=== PATIENT | female | born 1970 | race Caucasian/White ===

== ENCOUNTER 2022-05-19 13:00 | Outpatient (NON) | payer BC, SELFPAY | END 2022-05-19 13:01 | disposition home or self-care (01) | LOC: ANHLAB 05-21 07:33 | PROVIDERS: PCP Internal Medicine; Visit Provider Nurse Practitioner | DX: L98.8 Other specified disorders of the skin and subcutaneous tissue (principal) | CPT/HCPCS: 88305; 88342 ==

== ENCOUNTER 2022-07-27 12:35 | Outpatient (NON) | payer BC, SELFPAY | END 2022-07-27 12:36 | disposition home or self-care (01) | LOC: ANHLAB 12:36 | PROVIDERS: PCP Internal Medicine; Visit Provider Nurse Practitioner | DX: D22.5 Melanocytic nevi of trunk (principal) | CPT/HCPCS: 88305; 88331 ==

== ENCOUNTER 2024-10-30 01:46 | Day surgery (SDC) | payer BC, SELFPAY ==
[2024-07-21 15:36] VITALS: BMI 26.5
[2024-08-24 15:02] VITALS: BMI 26.3
[2024-09-15 13:58] VITALS: BMI 26.3
[2024-10-16 08:29] VITALS: BMI 26.3
--- OUTSIDE RECORDS SUMMARY | 2024-10-30 01:50 | XMS_ITS | Clinical Summary ---
Author Organization [facility] [employer] Address [address] [place] [address] Care Team Providers Care Plate Glass Installer Helper Name Role Phone Sadiq Bustos MD Primary Care Provider [phone] Source Comments [facility],non-owned Affiliates and Associated Physician Practices is amultiple site organization consisting of ambulatory clinics and hospital sitesin [place], [place], [place] and [place]. This disclosure is being madepursuant to the Care Everywhere program and may not contain all information available regarding this patient. Last updated 18.[facility] [employer] Allergies No known active allergies Medications * Be aware that medications may not be up to date on this document. Alwaysverify current medications with the patient. Medication Sig Dispensed Refills Start Date End Date Status oxyCODONE-acetaminophe n (PERCOCET) 5-325 MG tablet Take 1 Tab by mouth every 6 hours as needed for Pain 45 Tab 0 06/17/2016 Active Active Problems Problem Noted Date Diagnosed Date Intramural leiomyoma of uterus Social History Tobacco Use Types Packs/Day Years Used Date Smoking Tobacco: Never Alcohol Use Standard Drinks/Week Comments Yes 0 (1 standard drink = 0.6 oz pur e alcohol) socially Sex and Gender Information Value Date Recorded Sex Assigned at Not on file Gender Identity Not on file Sexual Orientation Not on file Last Filed Vital Signs Vital Sign Reading Time Taken Comments Blood Pressure 118/80 06/29/2016 4:12 PM CDT Pulse 65 06/17/2016 11:55 AM CDT Temperature 37.1 C (98.8 F) 06/17/2016 11:55 AM CDT Respiratory Rate 18 06/17/2016 11:55 AM CDT Oxygen Saturation 100% 06/17/2016 11:55 AM CDT Inhaled Oxygen Concentration - - Weight 59 kg (130 lb) 07/09/2016 4:55 PM CDT Height 160 cm (5' 3 ) 07/09/2016 4:55 PM CDT Body Mass Index 23.03 07/09/2016 4:55 PM CDT Plan of Treatment Health Maintenance Due Date Last Done Comments COLOGUARD (AGES 45-75) - COL ON CA SCREENING 1972 COLON MONITORING 1972 COLONOSCOPY - COLON CA SCREENING 1972 CT COLONOGRAPHY - COLON CA SCREENING 1972 Colorectal Cancer Screening 1972 FIT - COLON CA SCREENING 1972 FLEX SIG - COLON CA SCREENING 1972 LIPID TESTING 1972 MAMMOGRAM 1972 PAP SMEAR 1972 HIV SCREENING 1987 HEPATITIS C SCREENING 10/04/1990 DTAP/TDAP/TD VACCINES (1 - Tdap) 1991 HEPATITIS B VACCINE (1 of 3 - 19+ 3-dose series) 1991 PNEUMOCOCCAL VACCINE 50+ (1 of 1 - PCV) 2022 ZOSTER VACCINE (1 of 2) 2022 COVID-19 VACCINE (1 - 2023-2 5 season) 2024 INFLUENZA VACCINE (#1) 2024 DEPRESSION SCREENING 09/13/2024 HIB VACCINE Aged Out No longer eligi ble based on patient's age to complete this topic HPV VACCINE Aged Out No longer eligi ble based on patient's age to complete this topic MENINGOCOCCAL (Group B) VACCINE Aged Out No longer eligible based on patient's age to complete this topic MENINGOCOCCAL VACCINE Aged Out No hanane pina eligible based on patient's age to complete this topic PNEUMOCOCCAL VACCINE Aged Out No long er eligible based on patient's age to complete this topic Advance Directives * Full Code (Latest Code Status on File) Date Activated Date Inactivated Comments 06/16/2016 12:37 PM 06/17/2016 1:46 PM Care Teams Plate Glass Installer Helper Relationship Specialty Start Date End Date Sadiq Bustos MD [address] [place] [address] [address] [place] [address] PCP - General Internal Medicine 06/09/16
--- OUTSIDE RECORDS SUMMARY | 2024-10-30 01:50 | XMS_ITS | Encounter Summary ---
Author Organization [facility] Address [address] [place] [address] Care Team Providers Care Ferruler Name Role Phone Unavailable Primary Care Provider Unavailabl e Reason for Visit * Diagnostic Imaging (Routine) - Pending Review Specialty Diagnoses / Procedures Referred By Abigail kern Referred To Contact Procedures Breast Imaging Screening Outside Reference Gloria Rivera MD [address] [address] Phone: tel: fax: Referral ID Status Reason Start Date Expiration Date V isits Requested Visits Authorized [id number] Pending Review 04/18/2024 05/18/2025 1 1 Encounter Details Date Type Department Care Team (Late st Contact Info) Description 07/12/2019 Hospital Encounter [facility] [address] [place] [id number] Social History Tobacco Use Types Packs/Day Years Used Date Smoking Tobacco: Never Assessed Personal Safety Answer Date Recorded Getting School Help Needed Not on file 03/23 Comments Unknown Sex and Gender Information Value Date Recorded Sex Assigned at Not on file Legal Sex Female 4:58 PM CDT Gender Identity Not on file Sexual Orientation Not on file documented as of this encounter Plan of Treatment Not on file documented as of this encounter Procedures Procedure Name Priority Date/Time Associated Diagnosis Comments BREAST IMAGING MG SCREENING OUTSIDE REFERENCE Routine 07/12/2019 12:00 AM CDT documented in this encounter Results * Breast Imaging Screening Outside Reference (07/12/2019 12:00 AM CDT) Impressions [facility]_M[facility]MO[facility] - 04/18/2024 3:44 PM CDT These images are for Reference purposes only and have not been reviewed by [facility] Radiology. There will be no report generated by a [facility] Radiologist. Narrative [facility] - 04/18/2024 3:44 PM CDT EXAMINATION: Images For Reference Purposes Only us Gloria Rivera MD IMG MAMMO PROCEDURES Fin al Result [facility] documented in this encounter Visit Diagnoses Not on filedocumented in this encounter
--- OUTSIDE RECORDS SUMMARY | 2024-10-30 01:50 | XMS_ITS | Referral Summary ---
Author Organization [facility] [employer] Address [address] [place] [address] Care Team Providers Care Glove Printer Name Role Phone Sadiq Bustos MD Primary Care Provider [phone] Source Comments [facility],non-owned Affiliates and Associated Physician Practices is amultiple site organization consisting of ambulatory clinics and hospital sitesin [place], [place], [place] and [place]. This disclosure is being madepursuant to the Care Everywhere program and may not contain all information available regarding this patient. Last updated 18.[facility] [employer] Allergies No known active allergies Medications * [...] Mass Index 23.03 07/09/2016 4:55 PM CDT Functional Status Functional Status Response Date of Assess ment Is person deaf or have serious hearing difficult y? No 06/16/2016 Is person blind or have serious difficulty seein g? No 06/16/2016 Does person have serious dif ficulty walking/climbing stairs? Yes 06/16/2016 Does person have difficulty dressing/bathing? No 06/16/2016 Does person have difficulty doing errands alone? No 06/16/2016 Cognitive Status Response Date of Assessm ent Does person have difficulty concentrating/remembering/making decisions? No 06/16/2016 Plan of Treatment Not on file Advance Directives * Full Code (Latest Code Status on File) Date Activated Date Inactivated Comments 06/16/2016 12:37 PM 06/17/2016 1:46 PM Care Teams Glove Printer Relationship Specialty Start Date End Date Sadiq Bustos MD [address] [place] [address] [address] [place] [address] PCP - General Internal Medicine 06/09/16
--- OUTSIDE RECORDS SUMMARY | 2024-10-30 01:50 | XMS_ITS | Clinical Summary ---
Author Organization [facility] Address [address] [place] [address] Care Team Providers Care Carburetor Repairer Name Role Phone Melissa Curtis MD Primary Care Provider Family History Medical History Relation Comments Breast Cancer Maternal Grandmother Breast Cancer Mother Breast Cancer Paternal Grandmother Relation Status Comments Maternal Grandmother Mother Paternal Grandmother Social History Tobacco Use Types Packs/Day Years Used Date Smoking Tobacco: Never Assessed Comments Unknown Sex and Gender Information Value Date Recorded Sex Assigned at Not on file Legal Sex Female 8:35 PM CDT Gender Identity Not on file Sexual Orientation Not on file Plan of Treatment Health Maintenance Due Date Last Done Comments Cervical Cancer Screening Pap Smear (Age 30 to 64) Every 3 Years 1972 Colorectal Cancer Screening Colonoscopy (10 Years) 1972 Annual Physical 1975 Hepatitis C 1990 DTaP, Tdap and Td Vaccines (1 - Tdap) 1991 Hepatitis B Vaccines (1 of 3 - 19+ 3-dose series) 1991 Cervical Cancer Screening Pap with HPV Testing (Age 30 to 64) Every 5 Years 2002 Cervical Cancer Screening with HPV 2002 Zoster Vaccines (1 of 2) 2022 COVID-19 Vaccine ( - season) 2024 01/04/2021, 12/14/2020 Influenza Adult (#1) 2024 Mammogram Screening 03/22/2026 03/22/2024, 02/01/2023, 11/03/2021, Additional history exists Meningococcal B Vaccine Aged Out No l onger eligible based on patient's age to complete this topic Meningococcal Vaccine Aged Out No hanane pina eligible based on patient's age to complete this topic Pneumococcal Vaccine: Pediatrics (0 to 5 Years) and At-Risk Patients (6 to 64 Years) Aged Out No longer eligible based on patient's age to complete this topic RSV Immunizations Under 20 Months Aged Out No longer eligible based on patient's age to complete this topic Procedures Procedure Name Priority Date/Time Associated Diagnosis Comments MG SCREENING W SHAN GIANA DIGI Routine 03/22/2024 12:43 PM CDT Visit for screening mammogram from Last 3 Months or Most Recently Relevant to Health Maintenance Results * MG SCREENING W SHAN GIANA DIGI (03/22/2024 12:43 PM CDT) Anatomical Region Laterality Modality Breast Bilateral Mammography 03/22/2024 6:31 PM CDT Impressions 03/23/2024 11:11 AM CDT ===== IMPRESSION: ===== 1. Additional imaging of the right breast. Assessment: ACR BI-RADS 0 - INCOMPLETE: NEEDS ADDITIONAL IMAGING EVALUATION Recommendation: 1:Additional Imaging Right Comments: Ordered By: MELISSA CURTIS Interpreted By: Chelsea Irizarry, 03/22/2024 6:31 PM Narrative 03/23/2024 11:11 AM CDT EXAMINATION: Digital bilateral screening mammogram with 3-D tomosynthesis EXAM DATE/TIME: 03/22/2024 12:24 PM REASON FOR EXAM: Routine screening Mother with breast carcinoma age 38. Maternal grandmother and paternal grandmother with breast carcinoma COMPARISON: 11/03/2021.. 02/01/2023 Technique: Digital screening mammography of both breasts was performed in addition to 3-D Tomosynthesis technique. This study was read with the assistance of a computer-aided detection system. Tissue density: The breast tissue is heterogeneously dense, which may obscure small masses. Findings: Development of well-defined 1.4 cm nodule within the slightly lateral and inferior right breast. In its posterior aspect.. Follow-up with diagnostic workup. Possible follow-up ultrasound. No malignant microcalcifications. Other stable bilateral benign-appearing nodules. Thickening or nipple retraction. us Melissa Curtis MD MAMMO Final Resul t from Last 3 Months or Most Recently Relevant to Health Maintenance Insurance [facility] Care Teams Carburetor Repairer Relationship Specialty Start Date End Date Melissa Curtis MD PCP - General OBGYN 07/03/19
--- OUTSIDE RECORDS SUMMARY | 2024-10-30 01:50 | XMS_ITS | Patient Health Summary ---
Author Organization [facility] Address [address] [place] [address] Care Team Providers Care Space Controller Name Role Phone Sadiq Bustos MD Primary Care Provider [phone] Note from [facility],non-owned Affiliates and Associated Physician Practices is amultiple site organization consisting of ambulatory clinics and hospital sitesin [place], [place], [place] and [place]. This disclosure is being madepursuant to the Care Everywhere program and may not contain all information available regarding this patient. Last updated 18.[facility] Allergies No known active allergies Medications * Be aware that medications may not be up to date on this document. Alwaysverify current medications with the patient. * oxyCODONE-acetaminophen (PERCOCET) 5-325 MG tablet(Started 06/17/2016) Take 1 Tab by mouth every 6 hours as needed for Pain Active Problems Problem Noted Date Diagnosed Date [...] Mass Index 23.03 07/09/2016 4:55 PM CDT Procedures * CARDIAC RHYTHM STRIP ORDER(Performed 06/19/2016) * APHERESIS/TRANSFUSION ORDER(Performed 06/19/2016) * PATHOLOGY TISSUE EXAM (STL)(Performed 06/16/2016) Performed for Uterine leiomyoma, unspecified location * CYSTOSCOPY WITH HYDRODISTENSION BLADDER(Performed 06/16/2016) Performed for Uterine leiomyoma, unspecified location * HYSTERECTOMY TOTAL LAPAROSCOPIC WITH SALPINGECTOMY AND/OR OOPHORECTOMY (Performed 06/16/2016) Performed for Uterine leiomyoma, unspecified location * HCG URINE QUALITATIVE - POINT OF CARE(Performed 06/16/2016) * PATHOLOGY/GENETICS HISTORICAL-ONBASE(Performed 06/16/2016) * TYPE + SCREEN PANEL(Performed 06/10/2016) Performed for Pre-op testing * CBC W AUTO DIFFERENTIAL(Performed 06/10/2016) Performed for Pre-op testing * BLOOD TYPE VERIFICATION(Performed 06/10/2016) Results * CARDIAC RHYTHM STRIP ORDER (06/19/2016 5:08 AM CDT) Narrative 06/19/2016 5:08 AM CDT Ordered by an unspecified provider. Scanned Document CARDIAC SERVICES ORD ERABLES * APHERESIS/TRANSFUSION ORDER (06/19/2016 5:08 AM CDT) Narrative 06/19/2016 5:08 AM CDT Ordered by an unspecified provider. Scanned Document NURSING - VITAL SIGN S AND ASSESSMENT * GROSS + MICRO EXAM (STL) (06/16/2016 9:46 AM CDT) Case Report Surgical Pathology Report Case: [id number] Authorizing Provider: Iza Chang, Collected: 06/16/2016 09:46 AM Ordering Location: [facility] Received: 06/16/2016 11:10 AM Pathologist: Ana Mcdaniel MD Specimen: Uterus w Cervix, uterus, cervix, bilateral fallopian tubes 06/17/2016 1:43 PM T [facility] Final Diagnosis 1. Uterus with cervix and bilateral fallopian tubes: -- Secretory pattern -- Leiomyomata -- Adenomyosis -- Cervix with no pathologic changes -- Serosa with no pathologic changes -- Bilateral fallopian tubes with no pathologic changes GM/jonathan 06/17/2016 1:43 PM [facility] Gross Description Received in formalin in a container labeled Marco A, Yanna, uterus, cervix, bilateral tubes. The container holds a fragmented uterus with detached cervix measuring 30 x 19 x 7.5 cm in aggregate. The detached cervix measures 8 x 3.5 x 3 cm. The serosa is pink-greene and dull. The ectocervix measures 3.7 cm in diameter and displays a greene unremarkable mucosa. Slit-like os measures 1.5 cm. The endocervical canal measures 4 cm in length and has a greene herringbone mucosa. The endometrial cavity is disrupted. The endometrium is pink-greene. The myometrium contains multiple leiomyomas measuring up to 10.5 cm in greatest dimension. The leiomyomas have a white-greene whirled appearing cut surface with no areas of hemorrhage or necrosis identified. Also received in the container are two unoriented fallopian tube segments. The segments measure 5.5 cm in length and up to 0.7 cm in diameter and 5.8 cm in length x 0.7 cm in diameter. The fallopian tube segments have a fimbriated end. Section shows a patent lumen with no focal lesions. Drilling Rig Operator sections are submitted as follows: A1 - serosa, A2 - anterior cervix, A3 - posterior cervix, A4 through A6 - endomyometrium, A7/A8 - leiomyomas, A9 - sections of shorter fallopian tube segment, A10 sections of longer fallopian tube segment. DYT/ns 06/17/2016 1:43 PM [facility] Microscopic Description Microscopic examination of the cervix shows normal squamous mucosa and the endocervical canal is lined by unremarkable mucinous epithelium. There is no evidence of dysplasia or malignancy. The endometrium shows a secretory pattern and is free of polyp formation or hyperplasia. The myometrium shows evidence of leiomyoma formation with no unusual features. In addition, there is evidence of adenomyosis. The serosa is unremarkable. Both fallopian tubes show no pathologic changes. GM/jonathan 06/17/2016 1:43 PM CDT [facility] Pathology/Cytolo gy SPECIMEN FROM UTERINE CERVIX OBTAINED BY HYSTERECTOMY / Unknown 06/16/2016 9:46 AM CDT 06/16/2016 11:10 AM CDT Iza Cox MD LAB - PATHOL OGY/CYTOLOGY ORDERABLES Performing Organization Address City/[facility]/ZIP Co de Phone Number [facility] [address] [place] [address] * HCG URINE QUALITATIVE - POINT OF CARE (IP) (06/16/2016 7:02 AM CDT) HCG Qual Urine Negative Negative [facility] POCT TEST[facility] QC Verified Yes Yes [facility] POC T TESTING Urine specimen (specimen) URINE / Unknown 06/16/2016 7:02 AM CDT Iza Cox MD LAB - POINT OF CARE ORDERABLES Performing Organization Address [facility] Co de Phone Number [facility] POCT TESTING [address] [place] [address] * PATHOLOGY/GENETICS HISTORICAL-ONBASE (06/16/2016) 06/16/2016 Historical Provider LAB - CHEMISTRY O RDERABLES Performing Organization Address City/[facility]/ZIP Co de Phone Number [address] * TYPE + SCREEN PANEL (06/10/2016 3:19 PM CDT) ABO O 06/10/2016 4:51 PM CDT [facility] Rh Type Negative 06/10/2016 4:51 PM CDT [facility] Comment:History check perfor med. Retype required. Antibody Screen Negative 06/10/2016 4:51 PM CDT [facility] Miscellaneous samples (specimen) BLOOD SPECIMEN / Unknown Venipuncture / Unknown 06/10/2016 3:19 PM CDT 06/10/2016 3:29 PM CDT Iza Cox MD LAB - BLOOD BANK ORDERABLES [facility] [address] * CBC W AUTO DIFFERENTIAL (06/10/2016 3:19 PM CDT) WBC 5.9 4.4 - 10.7 x10E9/L 06/10/2016 3:35 PM CDT [facility] WBC Corrected x10E9/L 06/10/2016 3:35 PM CDT [facility] RBC 4.62 3.80 - 5.20 x10E12/L 06/10/2016 3:35 PM CDT [facility] Hemoglobin 13.8 12.0 - 15.6 gm/dL 06/10/2016 3:35 PM CDT [facility] Hematocrit 40.5 35.9 - 45.5 % 06/10/2016 3:35 PM CDT [facility] MCV 87.7 80.7 - 98.3 fl 06/10/2016 3:35 PM CDT [facility] MCH 29.9 26.7 - 34.0 pg 06/10/2016 3:35 PM CDT [facility] MCHC 34.1 30.8 - 35.9 gm/dL 06/10/2016 3:35 PM CDT [facility] Platelet Count 309 153 - 416 x10E9/L 06/10/2016 3:35 PM CDT [facility] RDW-CV 12.5 12.1 - 14.9 % 06/10/2016 3:35 PM CDT [facility] MPV 10.0 9.4 - 12.9 fl 06/10/2016 3:35 PM CDT [facility] Neutrophils % 53.7 44.0 - 73.0 % 06/10/2016 3:35 PM CDT [facility] Lymphocytes % 34.2 20.0 - 43.0 % 06/10/2016 3:35 PM CDT [facility] Monocytes % 6.8 5.0 - 13.0 % 06/10/2016 3:35 PM CDT [facility] Eosinophils % 4.3 0.0 - 6.0 % 06/10/2016 3:35 PM CDT [facility] Basophils % 0.7 0.0 - 2.0 % 06/10/2016 3:35 PM CDT [facility] Immature Granulocytes 0.3 0 - 1 % 06/10/2016 3:35 PM CDT [facility] Neutrophil Absolute 3.14 2.01 - 7.14 x10E9/L 06/10/2016 3:35 PM CDT [facility] Lymphocytes Absolute 2.00 1.07 - 3.94 x10E9/L 06/10/2016 3:35 PM CDT [facility] Monocytes Absolute 0.40 0.26 - 1.07 x10E9/L 06/10/2016 3:35 PM CDT [facility] Eosinophils Absolute 0.25 0 - 0.47 x10E9/L 06/10/2016 3:35 PM CDT [facility] Basophils Absolute 0.04 0 - 0.08 x10E9/L 06/10/2016 3:35 PM CDT [facility] Immature Granulocytes Absolute 0.02 0.00 - 0.06 x10E9/L 06/10/2016 3:35 PM CDT [facility] nRBC Auto 0 /100 WBC 06/10/2016 3:35 PM CDT [facility] Blood BLOOD SPECIMEN / Unknown Venipuncture / Unknown 06/10/2016 3:19 PM CDT 06/10/2016 3:29 PM CDT Iza Cox MD LAB - HEMATO LOGY ORDERABLES [facility] [address] [place] [address] * BLOOD TYPE VERIFICATION (06/10/2016 3:10 PM CDT) ABO O 06/10/2016 6:07 PM CDT [facility] Rh Type Negative 06/10/2016 6:07 PM CDT [facility] Miscellaneous samples (specimen) BLOOD SPECIMEN / Unknown Venipuncture / Unknown 06/10/2016 3:10 PM CDT 06/10/2016 5:14 PM CDT Iza Cox MD LAB - BLOOD BANK ORDERABLES Performing Organization Address City/State/[facility] Co de Phone Number [facility] [address] Care Teams Space Controller Relationship Specialty Start Date End Date Sadiq Bustos MD [address] [place] [address] PCP - General Internal Medicine 06/09/16
--- OUTSIDE RECORDS SUMMARY | 2024-10-30 01:50 | XMS_ITS | Referral Summary ---
Author Organization [facility] Address [address] [place] [address] Care Team Providers Care Chef'S Assistant Name Role Phone Ani Mosley Primary Care Provider [phone] Social History Tobacco Use Types Packs/Day Years Used Date Smoking Tobacco: Never Assessed Personal Safety Answer Date Recorded Getting School Help Needed Not on file 03/23 Comments Unknown Sex and Gender Information Value Date Recorded Sex Assigned at Not on file Legal Sex Female 4:58 PM CDT Gender Identity Not on file Sexual Orientation Not on file Plan of Treatment Not on file Insurance [employer] [place] [address] [place] [address] ACCESS CHOICE Care Teams Chef'S Assistant Relationship Specialty Start Date End Date Ani Mosley PA [address] [place] [id number] PCP - General Physician Elevated Work Platform Operator 03/24/24
--- OUTSIDE RECORDS SUMMARY | 2024-10-30 01:50 | XMS_ITS | Clinical Summary ---
Author Organization [facility] Address [address] [place] [address] Care Team Providers Care Clinical Psychiatrist Name Role Phone Ani Mosley Primary Care Provider [phone] Social History Tobacco Use Types Packs/Day Years [...] Date Last Done Comments Cervical Cancer Screening 1972 Colon Cancer Screening-Colonoscopy 1972 Depression Screening 1972 Hepatitis C Screening 1972 DTaP/Tdap/Td Vaccine (1 - Tdap) 1983 Hepatitis B Screening 1990 Regular Well Visit/Exam 18-64 1990 Zoster Vaccine (1 of 2) 2022 Covid-19 Vaccine (3 - 2023- season) 2024 01/04/2021, 12/14/2020 Influenza Vaccine (#1) 2024 Breast Cancer Screening-Mammogram 03/22/2025 03/22/2024, 03/22/2024, 02/01/2023, Additional history exists Pneumococcal vaccine <65 Aged Out No longer eligible based on patient's age to complete this topic Insurance [employer] ACCESS CHOICE ANTHEM ACCESS CHOICE Care Teams Clinical Psychiatrist Relationship Specialty Start Date End Date Ani Mosley PA [address] [place] [id number] PCP - General Physician Thermodynamics Teacher 03/24/24
[2024-10-30 13:00] VITALS: BP 147/86; PULSE 64; RESP 16; TEMP 36.4; O2SAT 100; BMI 26.1
--- NOTE | 2024-10-30 13:14 | WPDANESEPPF ---
Anes - Initial Pre Proc Eval Procedure: Operation Date: 10/30/24 14:30 Proposed Procedures p Screening Colonoscopy - Tan Wang MD Date/Time: 10/30/24 13:14 Surgeon: Tan Wang MD Pre Op Diagnosis: Neoplasm Screening Patient Data Age: 54 Gender: F Height: 1.6 m Weight: 66.8 kg Last Vital Signs Temp 97.5 F L 10/30/24 13:00 Pulse 64 10/30/24 13:00 Resp 16 10/30/24 13:00 BP 147/86 H 10/30/24 13:00 Pulse Ox 100 10/30/24 13:00 O2 Del Method Room Air 10/30/24 13:00 Allergies Allergy/AdvReac Type Severity Reaction Status Date / Time No Known Allergies Allergy Verified 10/30/24 13:06 Home Medications ?Medication ?Instructions ?Recorded ?Confirmed ?Type No Home Medications 10/16/24 10/16/24 History Patient hx anesthesia problems: none Family hx anesthesia problems: none Results Review: All pre-operative results and documents have been reviewed as part of the pre-operative evaluation. [facility] Past Medical History Medical History Vitamin D deficiency Vitamin B12 deficiency Diffuse cystic mastopathy Surgical History Surgical History History of foot surgery right 07/2016 S/P hysterectomy 06/2016 S/P knee surgery right, 2011 Family History Family History Mother Breast cancer Social History Social History Social History: 07/24/24 patient declined [facility] Smoking status: Never smoker Alcohol intake: current Drinks per week: 2 Alcohol use details: Socially Substance use: never Substance use type: does not use Lack of Transportation: No Lack of Food: Never True Current Housing: I Have Housing Concerned About Future Housing: No Difficulty Paying Gas/Electric Bills: No Difficulty Paying for Meds: No Currently Unemployed: No Difficulty w/ Childcare or Family Care: No Living arrangements: with family Occupation/Education: occupation Gender identity (if verbalized by the patient): Female Sexual Orientation (if Verbalized by the Patient): Straight or Heterosexual Spiritual care concerns: No Anes - Eval Final PreProcedure Day of Procedure 10/30/24 13:14 Patient weight: normal Lungs: normal air movement Airway: Mallampati scale class II Neurological: alert and oriented Last oral intake: >/= 8 hours ASA classification: I Emergent: no Anesthetic plan: proceed Anesthesia type and monitoring: general GIVS and standard monitoring Results Review: All pre-operative results and documents have been reviewed as part of the pre-operative evaluation. Healthy, pt had Inf A approx 6 weeks ago and resolved, back to feeling at her baseline. Informed Consent: The patient's anesthetic plan and its attendant risks and benefits were discussed with the patient/family/POA. Questions were solicited and answers provided to the satisfaction of the patient/family/POA.
[2024-10-30] MEDS: LACTATED RINGERS 1,000 ML 150 ML IV CONT (13:18)
--- NOTE | 2024-10-30 14:17 | PM.IMHP ---
H&P: HPI History of Present Illness Date/Time: 10/30/24 14:17 Chief Complaint: Screening colonoscopy Narrative: This is the patient's first colonoscopy. There are no GI symptoms and there is no family history of colorectal cancer. Review of Systems Review of Systems: All systems reviewed & are unremarkable except as noted in HPI and below PMFSH Past Medical History Medical History Vitamin D deficiency Vitamin B12 deficiency Diffuse cystic mastopathy Surgical History Surgical History History of foot surgery right 07/2016 S/P hysterectomy 06/2016 S/P knee surgery right, 2011 Family History Family History Mother Breast cancer Social History Social History Social History: 07/24/24 patient declined SDOH Smoking status: Never smoker Alcohol intake: current Drinks per week: 2 Alcohol use details: Socially Substance use: never Substance use type: does not use Lack of Transportation: No Lack of Food: Never True Current Housing: I Have Housing Concerned About Future Housing: No Difficulty Paying Gas/Electric Bills: No Difficulty Paying for Meds: No Currently Unemployed: No Difficulty w/ Childcare or Family Care: No Living arrangements: with family Occupation/Education: occupation Gender identity (if verbalized by the patient): Female Sexual Orientation (if Verbalized by the Patient): Straight or Heterosexual Spiritual care concerns: No Meds Home Medications and Allergies Home Medications ?Medication ?Instructions ?Recorded ?Confirmed ?Type No Home Medications 10/16/24 10/16/24 History Allergies Allergy/AdvReac Type Severity Reaction Status Date / Time No Known Allergies Allergy Verified 10/30/24 13:06 Vital Signs Vital Signs - 24 hr 10/30/24 13:00 Temperature 97.5 F L Pulse Rate 64 Respiratory Rate 16 Blood Pressure 147/86 H Pulse Oximetry 100 Oxygen Delivery Room Air Exam Const: General: cooperative and healthy appearing Resp: Effort & Inspection: normal respiratory effort and able to speak in complete sentences Auscultation: clear to auscultation bilaterally Cardio: Rate: regular rate Rhythm: regular rhythm GI: Inspection: normal to inspection GI Palp: No No hepatosplenomegaly present Auscultation: normal bowel sounds Rectal Exam: deferred Skin: General skin exam: normal color Psych: Appearance: grossly normal Mental Status: mental status grossly normal Assessment and Plan Assessment and plan (1) Encounter for screening colonoscopy: Code(s): Z12.11 - Encounter for screening for malignant neoplasm of colon Status: Acute Assessment and Plan: The patient is deemed a good candidate for the procedure. Consent signed. Will proceed.
[2024-10-30 14:45] VITALS: BP 127/77; PULSE 76; RESP 17; O2SAT 96
[2024-10-30 14:55] VITALS: BP 134/74; PULSE 62; RESP 16; O2SAT 100
[2024-10-30 15:05] VITALS: BP 144/83; PULSE 60; RESP 21; O2SAT 100
== END 2024-10-30 15:12 | disposition home or self-care (01) ==
PROVIDERS: PCP Physician Assistant Medical; Referring Provider Physician Assistant Medical; Visit Provider Internal Medicine Gastroenterology
PROC: 0DJD8ZZ Inspection of Lower Intestinal Tract, Via Natural or Artificial Opening Endoscopic (ICD-10-PCS; CPT 45378; principal; 2024-10-30 14:30)
DX: Z12.11 Encounter for screening for malignant neoplasm of colon (principal); K57.30 Diverticulosis of large intestine without perforation or abscess without bleeding; K64.8 Other hemorrhoids
CPT/HCPCS: 45378; J2003; J2704; J7120